=== PATIENT | female | born 1970 | race Two or more races ===

== ENCOUNTER 2017-12-27 08:14 | Outpatient (CLI) | payer OTHER | END 2017-12-27 10:48 | disposition home or self-care (01) | LOC: SONOGRAMA 08:14 → MAMO-SONO 08:15 → SONOGRAMA 10:48 | DX: N30.11 Interstitial cystitis (chronic) with hematuria (principal) ==

== ENCOUNTER 2019-09-24 08:02 | Outpatient (CLI) | payer OTHER | END 2019-09-24 08:36 | disposition home or self-care (01) | LOC: LAB 08:02 | DX: N92.5 Other specified irregular menstruation (principal) ==

== ENCOUNTER 2020-03-24 18:00 | Emergency (ER) | payer OTHER ==
[~2020-03-24] VITALS: Ht 177.8 cm; Wt 80.3 kg
== END 2020-03-25 12:25 | disposition home or self-care (01) ==
LOC: ER 18:00
DX: D50.0 Iron deficiency anemia secondary to blood loss (chronic) (principal); N93.8 Other specified abnormal uterine and vaginal bleeding
CPT/HCPCS: 36430 ×2; 86904 ×2; 86922 ×2; P9016 ×2